=== PATIENT | female | born 1965 | race American Indian/Alaskan Native ===

== ENCOUNTER 2019-07-17 10:16 | Outpatient (CLI) | payer OTHER ==
--- NOTE | 2019-07-17 11:35 | XRay Report ---
LUMBOSACRAL SPINE, 3 VIEWS INDICATION: Z02.71) Encounter for disability determination.. COMPARISON: None. IMPRESSION: Normal alignment and bone mineralization. Mild degenerative endplate changes and mild f acet arthropathy are identified at all levels. No acute osseous or soft tissue abnormality. Signer Name: Kushal Pedro Jr, MD Signed: 07/17/2019 11:31 AM Workstation Name: [id number]
== END 2019-07-17 10:17 | disposition home or self-care (01) ==
LOC: XRAY 10:16
PROVIDERS: ATTEND Internal Medicine
DX: Z02.71 Encounter for disability determination (principal); M54.31 Sciatica, right side
CPT/HCPCS: 72100